=== PATIENT | female | born 1960 | race Caucasian/White ===

== ENCOUNTER 2019-02-01 08:41 | Day surgery (SDC) | payer OTHER ==
[2019-02-01] MEDS ORDERED: LACTATED RINGERS 1,000 ML IV ONE (09:27)
--- NOTE | 2019-02-01 10:34 | ANESTHESIA ---
Pre-Anesthesia VS, & Labs - Diagnosis Invasive Lobular Carcinoma - Procedure Portacath placement Vital Signs: Temp Pulse Resp BP Pulse Ox 37.6 C H 95 16 148/89 H 96 02/01/19 09:07 02/01/19 09:07 02/01/19 09:07 02/01/19 09:07 02/01/19 09:07 Height 5 ft 5 in Weight (kg) 110.9 kg - NPO >8 hours - Is Patient ?: No (BTL) Home Medications and Allergies Home Medications: Ambulatory Orders Geritol 1 tab PO DAILY 01/27/19 Loratadine/Pseudoephedrine [Allergy Relief D-24Hr Tablet] 1 QID 02/01/19 Geritol 1 tab PO DAILY 01/27/19 Loratadine/Pseudoephedrine [Allergy Relief D-24Hr Tablet] 1 QID 02/01/19 Allergies/Adverse Reactions: Allergies Allergy/AdvReac Type Severity Reaction Status Date / Time latex Allergy Rash Verified 01/19/19 15:25 oxycodone [From Percocet] Allergy Hallucinati Verified 01/27/19 09:30 ons povidone-iodine Allergy Rash Verified 01/27/19 09:30 [From Betadine] soap [From Betadine] Allergy Rash Verified 01/27/19 09:30 aspirin AdvReac upset Verified 01/19/19 15:25 stomach lactose AdvReac upset Verified 01/27/19 09:30 stomach dial soap Allergy Unknown Uncoded 01/27/19 09:30 Scents Allergy Rash Uncoded 02/01/19 09:29 Anes History & Medical History - Anesthetic History Anesthesia Complications: reports: Post-Operative Nausea/Vomiting (scope patch placed pre-op) Family history of Anesthesia Complications: Denies Family history of Malignant Hyperthermia: Denies - Medical History Cardiovascular: reports: None Pulmonary: reports: Asthma, Sleep apnea (no study yet. pt and son both say pt snores loudly and stops breathing occasionally) Gastrointestinal: reports: GERD (controlled with meds), Ulcers, Colon polyps Urinary: reports: Incontinence, Other Musculoskeletal: reports: Osteoarthritis, Chronic back pain Endocrine/Autoimmune: reports: None Skin: reports: None - Surgical History Gynecologic: section, Tubal ligation Orthopedic: Arthroscopic surgery Exam General: Alert, Oriented x3, Cooperative Dental: WNL Mouth Openin Fingerbreadth Neck Mobility: Normal Mallampati classification: II Thyromental Distance: 4-6 cm Respiratory: Lungs clear, Normal breath sounds Cardiovascular: Regular rate Neurological: Normal speech Mental/Cognitive Status: Alert/Oriented X3, Normal for patient Cognitive Status: Within normal limits Plan Anesthesia Type: General, MAC Consent for Procedure(s) Verified and Reviewed: Yes Code Status: Attempt Resuscitation ASA classification: 3-Severe systemic disease Is this case an emergency?: No
[2019-02-01] MEDS ORDERED: SCOPOLAMINE PATCH TOP ONE (10:56)
[2019-02-01] MEDS ORDERED: BUPIVACAINE 0.5%-EPI 1:200000 PF 30 ML VIAL ONE (11:26)
[2019-02-01] MEDS ORDERED: LIDOCAINE-MPF 1% 30 ML VIAL ONE (11:26)
[2019-02-01] MEDS ORDERED: KETAMINE 500 MG/10 ML VIAL IVP ONE (11:54)
[2019-02-01] MEDS ORDERED: MIDAZOLAM 2 MG/2 ML VIAL IVP ONE (11:54)
[2019-02-01] MEDS ORDERED: PROPOFOL 200 MG/20 ML VIAL IVP ONE (11:54)
[2019-02-01] MEDS ORDERED: BUPIVACAINE 0.5%-EPI 1:200000 PF 30 ML VIAL SUBQ ONE ×2 (12:17)
[2019-02-01] MEDS ORDERED: LIDOCAINE 1% 50 ML MDV SUBQ ONE ×2 (12:17)
--- NOTE | 2019-02-01 12:36 | OPERATIVE REPORT ---
Operative Report - General Planned Procedure: Right subclavian power port for chemotherapy Pre-Op Diagnosis: Locally advanced left breast cancer Procedure Performed: Right subclavian power port for chemotherapy Post Op Diagnosis: Locally advanced left breast cancer - Procedure Note Primary Surgeon: Jayden Anesthesia Provider: MARI Felton Anesthesia Technique: Local, MAC IV Fluids (mL): 200 Estimated Blood Loss (mL): 5 Findings: Power port in good position in the superior venacava Complications: None apparent - Other Other Information/Narrative: After obtaining informed consent, the patient was brought to the operating room and placed in the supine position on the operating table. Following successful induction of sedation with monitored anesthesia care, appropriate padding all bony prominences and placement of appropriate monitors, the chest was prepped and draped in the standard surgical fashion. A Time Out was held per SCOAP protocol. All elements of the surgical safety check list were followed before, during, and after the procedure. Following infiltration with local anesthetic to create a field block, the right subclavian vein was access via the Seldinger technique. The J wire was gently placed into the vein through the wire. Fluoroscopy was used to check positioning of the wire in the superior vena cava. A pocket was created 5 cm inferior to the access site. The area was infiltrated with local anesthetic and a 2 cm incision created in the skin. A 2x2 cm pocket was formed using blunt and sharp dissection. The tubing was fed through the subcutaneous tissue to connect the pocket with the access site. The port was assembled and sewn into place in the pocket. The dilator and introducer were passed over the wire and into the vein. The wire and dilator were removed leaving only the introducer. The tubing was placed into the vein through the introducer and the introducer removed. The port was tested and flushed and love easily. It was locked with heparin saline solution. The pocket was closed with vicryl and monocryl suture and monocryl was placed at the access site. All sponge, needle, and instrument counts were correct at the conclusion of the case. The patient was allowed to awaken from anesthesia without difficulty and taken to the post anesthesia care unit in good condition. CXR in the PACU revealed the port in good position with no evidence of pneumothorax.
[2019-02-01] MEDS ORDERED: ONDANSETRON 4 MG/2 ML VIAL IVP PRN (13:23)
[2019-02-01] MEDS ORDERED: HYDROcod/ACETAM 5/325 MG TABLET PO PRN (13:23)
[2019-02-01] MEDS ORDERED: HYDROcod/ACETAM 5/325 MG TABLET ONE (13:42)
--- NOTE | 2019-02-01 13:55 | XRAY Report ---
Reason: Check for line placement Procedure Date: 02/01/2019 Accession Number: [id number] / [id number] Procedure: XR - Chest for Line Placement CPT Code: FULL RESULT: EXAM: CHEST RADIOGRAPHY EXAM DATE: 02/01/2019 01:24 PM. CLINICAL HISTORY: Check for line placement. COMPARISON: None. TECHNIQUE: 1 view. FINDINGS: Lungs/Pleura: No focal opacities evident. No pleural effusion. No pneumothorax. Mediastinum: Within exam limitations, the cardiomediastinal contour is normal. Other: Right subclavian approach port has been placed with tip in SVC. IMPRESSION: Distal tip of the central venous port resides in the SVC. RADIA
[2019-02-01 14:08] VITALS: BP 162/99
--- NOTE | 2019-02-02 08:14 | XRAY Report ---
Reason: PORTACATH PLACEMENT Procedure Date: 02/01/2019 Accession Number: [id number] / [id number] Procedure: FL - OR C-Arm Procedure CPT Code: FULL RESULT: EXAM: FLUOROSCOPIC GUIDANCE EXAM DATE: 02/01/2019 11:00 AM. CLINICAL HISTORY: Port-A-Cath placement. COMPARISON: None. FINDINGS: No images are submitted. IMPRESSION: Fluoroscopic guidance provided for Port-A-Cath placement.. Total fluoroscopy time: 0.1 minutes. Number of images: 0. RADIA
== END 2019-02-01 08:42 | disposition home or self-care (01) ==
LOC: SDS 08:41
PROVIDERS: ATTEND Surgery
PROC: 05H533Z Insertion of Infusion Device into Right Subclavian Vein, Percutaneous Approach (ICD-10-PCS; principal; 2019-02-01 11:30)
DX: C50.912 Malignant neoplasm of unspecified site of left female breast (principal); G47.30 Sleep apnea, unspecified; J45.909 Unspecified asthma, uncomplicated
CPT/HCPCS: 36561; A9270; C1788; J3490; J7120; 71045

== ENCOUNTER 2019-06-13 07:14 | Day surgery (SDC) | payer OTHER ==
[2019-06-13] MEDS ORDERED: LACTATED RINGERS 1,000 ML IV ONE (08:38)
[2019-06-13 08:40] VITALS: BP 150/99
--- NOTE | 2019-06-13 09:11 | ANESTHESIA ---
Pre-Anesthesia VS, & Labs - Diagnosis breast cancer - Procedure bilateral mastectomy Vital Signs: Temp Pulse Resp BP Pulse Ox 36.6 C 94 16 150/99 H 97 06/13/19 08:38 06/13/19 08:38 06/13/19 08:38 06/13/19 08:38 06/13/19 08:38 Height 5 ft 5 in Weight (kg) 108.7 kg - NPO >8 hours - Is Patient ?: No Home Medications and Allergies Loratadine/Pseudoephedrine [Allergy Relief D-24Hr Tablet] 1 tab PO QID 02/01/19 Allergies/Adverse Reactions: Allergies Allergy/AdvReac Type Severity Reaction Status Date / Time latex Allergy Rash Verified 06/10/19 13:44 oxycodone [From Percocet] Allergy Hallucinati Verified 06/10/19 13:44 ons povidone-iodine Allergy Rash Verified 06/10/19 13:44 [From Betadine] soap [From Betadine] Allergy Rash Verified 06/10/19 13:44 aspirin AdvReac upset Verified 06/10/19 13:44 stomach lactose AdvReac upset Verified 06/10/19 13:44 stomach dial soap Allergy Unknown Uncoded 06/10/19 13:44 Scents Allergy Rash Uncoded 06/10/19 13:44 Anes History & Medical History - Anesthetic History Anesthesia Complications: reports: No previous complications Family history of Anesthesia Complications: Denies Family history of Malignant Hyperthermia: Denies - Medical History Cardiovascular: reports: None Pulmonary: reports: Asthma (seasonal), Sleep apnea Gastrointestinal: reports: GERD, Ulcers, Colon polyps Urinary: reports: Incontinence, Other Neuro: reports: None Musculoskeletal: reports: Osteoarthritis, Chronic back pain Endocrine/Autoimmune: reports: None Blood Disorders: reports: None Skin: reports: None Smoking Status: Never smoker (quite 19 years ago) Psychosocial: reports: No issues indicated - Surgical History General: Other Gynecologic: section, Tubal ligation Orthopedic: Arthroscopic surgery Exam General: Alert, Oriented x3, Cooperative, No acute distress Dental: WNL Mouth Openin Fingerbreadth Neck Mobility: Normal Mallampati classification: II Thyromental Distance: 4-6 cm Respiratory: Lungs clear, Normal breath sounds, No respiratory distress, No accessory muscle use Cardiovascular: Regular rate, Normal S1, Normal S2, No murmurs Abdomen: Normal bowel sounds, Soft, No tenderness, No hepatospenomegaly, No masses Extremities: No clubbing, No cyanosis, No edema, Normal pulses, No tenderness/swelling Neurological: Normal gait, Normal speech, Strength at 5/5 X4 ext, Normal tone, Sensation intact, Cranial nerves 3-12 NL, Reflexes 2+ Mental/Cognitive Status: Alert/Oriented X3, Normal for patient Cognitive Status: Within normal limits Plan Anesthesia Type: General Consent for Procedure(s) Verified and Reviewed: Yes Code Status: Attempt Resuscitation ASA classification: 3-Severe systemic disease Is this case an emergency?: No
[2019-06-13] MEDS ORDERED: CITRIC ACID/SODIUM CITRATE 15 ML UDC PO ONE ×2 (09:22)
[2019-06-13] MEDS ORDERED: SCOPOLAMINE PATCH TOP SCH (10:00)
== END 2019-06-13 07:15 | disposition home or self-care (01) ==
LOC: SDS 07:14
PROVIDERS: ATTEND Surgery
DX: Z53.9 Procedure and treatment not carried out, unspecified reason (principal)

== ENCOUNTER 2019-06-24 05:55 | Day surgery (SDC) | payer OTHER ==
[2019-06-24] MEDS ORDERED: DEXAMETHASONE 4 MG/ML VIAL IVP ONE (05:56)
[2019-06-24] MEDS ORDERED: GLYCOPYRROLATE 1 MG/5 ML VIAL IVP ONE (05:56)
[2019-06-24] MEDS ORDERED: PROPOFOL 200 MG/20 ML VIAL IVP ONE (05:56)
[2019-06-24] MEDS ORDERED: NEOSTIGMINE 1 MG/1 ML 10 ML MDV IVP ONE (05:56)
[2019-06-24] MEDS ORDERED: MIDAZOLAM 2 MG/2 ML VIAL IVP ONE (05:56)
[2019-06-24] MEDS ORDERED: ROCURONIUM 50 MG/5 ML VIAL IVP ONE (05:56)
[2019-06-24] MEDS ORDERED: LIDOCAINE-MPF 2% 5 ML VIAL IM ONE (05:56)
[2019-06-24] MEDS ORDERED: ePHEDrine 50 MG/ML VIAL IVP ONE (05:56)
[2019-06-24] MEDS ORDERED: CEFAZOLIN SODIUM IN 0.9 % NACL 2 GM/100 ML BAG IV ONE (06:23)
[2019-06-24] MEDS ORDERED: LACTATED RINGERS 1,000 ML IV ONE ×2 (06:32→10:42)
[2019-06-24] MEDS ORDERED: BUPIVACAINE 0.5% PF 30 ML VIAL ONE (07:06)
[2019-06-24] MEDS ORDERED: LIDOCAINE 1%-EPI 1:100000 20 ML MDV ONE (07:06)
--- NOTE | 2019-06-24 07:32 | ANESTHESIA ---
Pre-Anesthesia VS, & Labs - Diagnosis Breast cancer - Procedure Bilateral mastectomy Vital Signs: Temp Pulse Resp BP Pulse Ox 36.7 C 83 18 156/98 H 97 06/24/19 06:43 06/24/19 06:43 06/24/19 06:43 06/24/19 06:43 06/24/19 06:43 Height 5 ft 5 in Weight (kg) 107.7 kg - NPO Other (Water at 0400 with pills) - Is Patient ?: No - Lab Results Lab results reviewed: No Home Medications and Allergies Loratadine/Pseudoephedrine [Allergy Relief D-24Hr Tablet] 1 tab PO QID 02/01/19 Allergies/Adverse Reactions: Allergies Allergy/AdvReac Type Severity Reaction Status Date / Time latex Allergy Rash Verified 06/24/19 06:55 oxycodone [From Percocet] Allergy Hallucinati Verified 06/24/19 06:55 ons povidone-iodine Allergy Rash Verified 06/24/19 06:55 [From Betadine] soap [From Betadine] Allergy Rash Verified 06/24/19 06:55 aspirin AdvReac upset Verified 06/24/19 06:55 stomach lactose AdvReac upset Verified 06/24/19 06:55 stomach dial soap Allergy Unknown Uncoded 06/10/19 13:44 Scents Allergy Rash Uncoded 06/10/19 13:44 Anes History & Medical History - Anesthetic History Anesthesia Complications: reports: No previous complications Family history of Anesthesia Complications: Denies Family history of Malignant Hyperthermia: Denies - Medical History Cardiovascular: reports: None Pulmonary: reports: Asthma, Sleep apnea Gastrointestinal: reports: GERD, Ulcers, Colon polyps Urinary: reports: Incontinence, Other Neuro: reports: None, Head injury (Concussion) Musculoskeletal: reports: Osteoarthritis, Chronic back pain Endocrine/Autoimmune: reports: None Blood Disorders: reports: None Skin: reports: None Smoking Status: Never smoker (quite 19 years ago) Psychosocial: reports: No issues indicated - Surgical History General: Other Gynecologic: section, Tubal ligation Orthopedic: Arthroscopic surgery Exam General: Alert, Oriented x3 Dental: WNL Mouth Opening: Greater than 4 Fingerbreadths Neck Mobility: Normal Mallampati classification: I Thyromental Distance: greater than 6 cm Respiratory: Lungs clear Cardiovascular: Regular rate Neurological: Normal speech Mental/Cognitive Status: Alert/Oriented X3 Cognitive Status: Within normal limits Plan Anesthesia Type: General Consent for Procedure(s) Verified and Reviewed: Yes Code Status: Attempt Resuscitation ASA classification: 2-Mild systemic disease Is this case an emergency?: No
[2019-06-24] MEDS ORDERED: LIDOCAINE 1%-EPI 1:100000 30 ML MDV SUBQ ONE (08:50)
[2019-06-24] MEDS ORDERED: BUPIVACAINE 0.5% PF 30 ML VIAL SUBQ ONE (08:50)
--- NOTE | 2019-06-24 10:50 | OPERATIVE REPORT ---
Operative Report - General Planned Procedure: Bilateral skin sparing mastectomy and left axillary dissection Pre-Op Diagnosis: Locally advanced breast cancer status post lisa-adjuvant chemotherapy Procedure Performed: Bilateral skin sparing mastectomy and left axillary dissection Post Op Diagnosis: Locally advanced breast cancer status post lisa-adjuvant chemotherapy - Procedure Note Primary Surgeon: Jayden Anesthesia Provider: MARI Nair Anesthesia Technique: General LMA, Local Pathology: 1. Right breast 2. Left breast and axillary contents IV Fluids (mL): 1,000 Estimated Blood Loss (mL): 100 Drain/Tube Type: Derrick drain (One 19F Derrick drain in each of the inframammary pockets) Findings: No gross tissue abnormalities identified in the right breast Left breast tissue contracted and fibrotic and densely adherent to the underlying muscle Complications: None apparent - Other Other Information/Narrative: After obtaining informed consent, the patient is brought to the operating room and placed in the supine position on the operating table. Following successful induction of general anesthesia, appropriate padding of all bony prominences, and placement appropriate monitors, bilateral chest and axilla were prepped and draped in the standard surgical fashion. A timeout was held per scope protocol. All elements of the surgical safety checklist were followed before, during, and after the procedure. We began the procedure on the right side which is the unaffected side. Following infiltration with local anesthetic to create a field block, an elliptical incision was fashioned to include the nipple areolar complex. This was carried through the skin and subcutaneous tissue sharply. The breast tissue was then dissected free from the overlying dermis in a circumferential fashion. Planes were continued superiorly to a place approximately 2 to 3 cm inferior to the right clavicle to avoid the PowerPort that was in place.Medial the plane was developed to the sternum, inferiorly to the inframammary fold and laterally to the latissimus muscle. The breast was then released at the retromammary bursa and removed in a medial to lateral fashion. Once we reached the axilla, the axillary tail was dissected free leaving all visible lymph node structures in place. The specimen was marked for orientation and passed from the table. The wound was checked for hemostasis and irrigated with warm water. It was aspirated free of all fluid and particulate matter. A 19 [place]ic Derrick drain was placed in the inframammary pocket inferior medially. It was sewn into place. The incision was closed in layers with Vicryl and Monocryl suture. We continued the procedure on the left side. The left breast is the affected side and the disease in this area is much more advanced and adherent to the skin. For this reason, a larger elliptical incision was fashioned around the nipple areolar complex to include all of the skin densely adherent to the underlying tumor.This was carried through the skin and subcutaneous tissue sharply. The breast tissue was then dissected free from the overlying dermis in a circumferential fashion. Planes were continued superiorly to a place approximately 2 to 3 cm inferior to the right clavicle to avoid the PowerPort that was in place.Medial the plane was developed to the sternum, inferiorly to the inframammary fold and laterally to the latissimus muscle. The plane was developed superiorly to just inferior to the left clavicle, medially to the sternum, inferiorly to the inframammary fold, laterally to the latissimus muscle, and superior laterally into the axilla. The breast was then removed in a medial to lateral fashion leaving it attached only by the axillary tail. It is notable that the breast and inflammatory response was densely adherent to the underlying muscle. For this reason a significant portion of the central chest wall muscle was taken with the specimen. We continued our dissection into the axilla. The entire axillary fat pad was removed with dissection planes posterior to the pectoralis minor, the chest wall itself, the axillary vein superiorly, and the latissimus muscle posteriorly. The axillary vein was not skeletonized. The entire specimen including the axillary tail and axillary node packet was passed from the table after having been marked for orientation. The wound was then checked for hemostasis. It was irrigated with 1 L of warm water and aspirated free of all fluid and particulate matter. A 19 [place]ic Derrick drain was placed in the inframammary pocket and brought out inferior medially. It was sewn into place. The incision was then closed in layers with absorbable Vicryl and Monocryl suture. All sponge, needle, and instrument counts were correct at the conclusion of the case. Once the counts were correct, the entire chest wall and axilla were cleaned with alcohol. The Ana Lilia Ana device was then placed one on each side of the incision and 125 mm of negative pressure was applied. Both dressings appear to function appropriately. A loose binder was applied. The patient was allowed to wake from anesthesia and taken to the postanesthesia care unit in satisfactory condition.
[2019-06-24] MEDS ORDERED: ACETAMINOPHEN 1,000 MG/100 ML 100 ML IV ONE (10:54)
[2019-06-24] MEDS: fentaNYL 100 MCG/2 ML VIAL ONE ×3 (10:58→11:19)
[2019-06-24] MEDS: HYDROmorphone 0.5 MG/0.5 ML SYRINGE ONE ×3 (10:58→11:53)
[2019-06-24] MEDS ORDERED: ONDANSETRON 4 MG/2 ML VIAL IVP PRN (11:02)
[2019-06-24] MEDS ORDERED: ACETAMINOPHEN 325 MG TABLET PO PRN (11:02)
[2019-06-24] MEDS ORDERED: HYDROmorphone 1 MG/ML SYRINGE IVP PRN (11:02)
[2019-06-24] MEDS ORDERED: SODIUM CHLORIDE FLUSH 0.9% 10 ML SYRINGE IVP PRN (11:02)
[2019-06-24] MEDS ORDERED: LORazepam 2 MG/ML VIAL IVP PRN (11:02)
[2019-06-24] MEDS ORDERED: HYDROmorphone 0.5 MG/0.5 ML SYRINGE ONE ×2 (11:12→11:53)
[2019-06-24] MEDS ORDERED: fentaNYL 100 MCG/2 ML VIAL ONE (11:53)
[2019-06-24] MEDS: HYDROmorphone 0.5 MG/0.5 ML SYRINGE IVP PRN ×2 (13:02→17:17)
[2019-06-24] MEDS: LACTATED RINGERS 1,000 ML IV SCH ×2 (13:03→19:55)
[2019-06-24] MEDS: DOCUSATE SODIUM 100 MG CAPSULE PO SCH (13:04)
[2019-06-24] MEDS: PANTOPRAZOLE 40 MG TABLET PO SCH (13:06)
[2019-06-24] MEDS: KETOROLAC 30 MG/ML VIAL IVP PRN (13:08)
--- NOTE | 2019-06-24 15:58 | PHARMACY PROGRESS NOTE ---
- Best Possible Medication History Admit Date and Time: Processed by: Pharmacy Medication History completed: Yes Patient Interview: Completed Secondary Source(s): Pharmacy records, Insurance records As the person ultimately responsible for medication therapy, providers are able to order a medication from an existing home medication list in [facility] via the "Reconcile Routine" prior to Confirmation of that medication by customer support consultant. Such practice is discouraged except when the physician, in their clinical judgment, deems that a medical need exists for a medication without regard to previous use.
[2019-06-24] MEDS: ceFAZolin 2 GM in SODIUM CHLORIDE 0.9% 100ML 100 ML IV SCH ×2 (17:04→23:52)
[2019-06-24] MEDS: SODIUM CHLORIDE FLUSH 0.9% 10 ML SYRINGE IVP SCH ×2 (17:18→23:52)
[2019-06-24] MEDS: HYDROcod/ACETAM 5/325 MG TABLET PO PRN (22:42)
[2019-06-25] MEDS: KETOROLAC 30 MG/ML VIAL IVP PRN ×2 (01:27→07:54)
[2019-06-25] MEDS: PANTOPRAZOLE 40 MG TABLET PO SCH (06:45)
[2019-06-25] MEDS: SODIUM CHLORIDE FLUSH 0.9% 10 ML SYRINGE IVP SCH (07:54)
[2019-06-25] MEDS: LACTATED RINGERS 1,000 ML IV SCH (08:01)
[2019-06-25] MEDS: HYDROcod/ACETAM 5/325 MG TABLET PO PRN ×2 (08:51→13:08)
[2019-06-25] MEDS ORDERED: ENOXAPARIN 40 MG/0.4 ML SYRINGE SUBQ SCH (09:00)
[2019-06-25] MEDS: DOCUSATE SODIUM 100 MG CAPSULE PO SCH (11:14)
[2019-06-25] MEDS ORDERED: ACETAMINOPHEN 325 MG TABLET PO PRN (11:41)
[2019-06-25] MEDS ORDERED: IBUPROFEN 600 MG TABLET PO PRN (11:41)
[2019-06-25] MEDS ORDERED: ONDANSETRON 4 MG/2 ML VIAL IVP PRN (11:41)
--- NOTE | 2019-06-25 12:12 | PROVIDER PROGRESS NOTE ---
Subjective - General Procedure Date: 06/24/19 Post Op Days: 1 Procedure Performed: Bilateral skin sparing mastectomy and left axillary dissection - Review of Systems Wound/Incisions: positive: Healing well, Dressing dry and intact Drain Type: Derrick Drain Output Description: serosanguinous General: positive: Fatigue HEENT: positive: No symptoms, Headaches Pulmonary: positive: No symptoms Cardiovascular: positive: No symptoms Gastrointestinal: positive: Nausea, Vomiting (With both Dilaudid and Oxycodone) Genitourinary: positive: No symptoms Musculoskeletal: positive: No symptoms Skin: positive: No symptoms Objective - Patient Data Vital Signs: Vital Signs x48h Temp Pulse Resp BP Pulse Ox 06/25/19 09:23 36.5 C 76 18 146/68 H 100 06/25/19 05:00 36.8 C 73 20 152/79 H 97 Weight: Weight 06/23/19 06/24/19 06/25/19 23:59 23:59 23:59 Weight (kg) 107.7 kg Intake & Output: Intake and Output Totals x24h 06/23/19 06/24/19 06/25/19 23:59 23:59 23:59 Intake Total 2346.25 1195 Output Total 1345 1730 Balance 1001.25 -535 - Current Medications Current Medications: Current Medications Generic Name Dose Route Start Last Admin Trade Name Freq PRN Reason Stop Dose Admin Hydrocodone Bitart/Acetaminophen 1 tab 06/24/19 11:07 06/25/19 08:51 Somers 5/325 PO 1 tab Q4HR PRN Administration PAIN Docusate Sodium 100 mg 06/24/19 12:00 06/25/19 11:14 Colace 100mg Capsule PO Not Given DAILY ARASELI Enoxaparin Sodium 40 mg 06/25/19 09:00 06/25/19 08:52 Lovenox SUBQ 40 mg DAILY ARASELI Administration Hydromorphone HCl 0.5 mg 06/24/19 12:52 06/24/19 17:17 Dilaudid Inj Syringe IVP 0.5 mg Q1H PRN Administration PAIN Lactated Ringer's 1,000 mls @ 75 mls/hr 06/24/19 12:00 06/25/19 08:01 Lr IV 75 mls/hr .[id number] ARASELI Administration Ketorolac Tromethamine 30 mg 06/24/19 11:02 06/25/19 07:54 Toradol Inj (30mg) IVP 06/29/19 11:01 30 mg Q6H PRN Administration PAIN Ondansetron HCl 4 mg 06/24/19 11:02 06/24/19 13:46 Zofran Inj IVP 4 mg Q6H PRN Administration Nausea / Vomiting Pantoprazole Sodium 40 mg 06/24/19 12:00 06/25/19 06:45 Protonix PO 40 mg QDAC ARASELI Administration Sodium Chloride 10 ml 06/24/19 17:00 06/25/19 07:54 Normal Saline Flush 0.9% IVP 10 ml 0100,0900,1700 ARASELI Administration ABX Reporting Has patient been on IV antibiotics over the past 48 hours?: Yes Impression/Plan - Problem List Problem List: Locally advanced left breast cancer. Discharge to home in the care of family this morning. Call the office Thursday AM to arrange for dressing change late next week.
[2019-06-25 12:42] VITALS: BP 141/64
== END 2019-06-25 13:50 | disposition home or self-care (01) ==
LOC: SDS 05:55 → MS2 12:43 → SDS 06-25 13:50
PROVIDERS: ATTEND Surgery
PROC: 0HTV0ZZ Resection of Bilateral Breast, Open Approach (ICD-10-PCS; principal; 2019-06-24 07:30)
PROC: 07T60ZZ Resection of Left Axillary Lymphatic, Open Approach (ICD-10-PCS; 2019-06-24 07:30)
DX: C50.112 Malignant neoplasm of central portion of left female breast (principal); C77.3 Secondary and unspecified malignant neoplasm of axilla and upper limb lymph nodes; C79.89 Secondary malignant neoplasm of other specified sites; Z17.0 Estrogen receptor positive status [ER+]; G47.30 Sleep apnea, unspecified; J45.909 Unspecified asthma, uncomplicated; R01.1 Cardiac murmur, unspecified; R32 Unspecified urinary incontinence; Z87.891 Personal history of nicotine dependence
CPT/HCPCS: 19303; 19307; 93005; A9270; J0131; J0690; J1170; J1650; J7120